=== PATIENT | male | born 1965 | race Caucasian/White ===

== ENCOUNTER → 2019-05-16 13:56 | Outpatient (CLI) | payer OTHER, SELFPAY ==
--- NOTE | 2019-05-16 14:01 | XR_ITS ---
PROCEDURE: XR FOOT RT MIN 3V CLINICAL INDICATION: FOOT PAIN COMPARISON: No exams were available for comparison FINDINGS: No fracture or dislocation. No lytic or blastic change. There is normal mineralization. Osteoarthritic changes are present at the 1st metatarsophalangeal joint Other findings:None. 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
== END ==
PROVIDERS: PCP Family Medicine; Visit Provider Nurse Practitioner Family
DX: M79.671 Pain in right foot (principal)
CPT/HCPCS: 73630

== ENCOUNTER → 2019-08-12 09:19 | Outpatient (CLI) | payer OTHER, SELFPAY ==
--- NOTE | 2019-08-12 09:22 | XR_ITS ---
PROCEDURE: XR FOOT WT BEARING RT 3V CLINICAL INDICATION: pain Right foot pain COMPARISON: XR FOOT RT MIN 3V from 05/16/2019 FINDINGS: No fracture or dislocation. No lytic or blastic change. There is normal mineralization. There are mild osteoarthritic changes at the 1st metatarsophalangeal joint. There is widening at the base of the proximal phalanx of the 5th digit which may be due to an old fracture not significantly changed Other findings:None. IMPRESSION: No change osteoarthritis of the 1st MTP joint and suspected old fracture at the proximal phalanx of the 5th toe Dictated by: Jens Lopez MD 08/12/2019 15:09 Electronically signed by Jens Lopez MD in [place] 08/12/2019 15:09
== END ==
PROVIDERS: PCP Family Medicine; Visit Provider Podiatrist
DX: M77.41 Metatarsalgia, right foot (principal); M77.51 Other enthesopathy of right foot and ankle; M79.671 Pain in right foot
CPT/HCPCS: 73630

== ENCOUNTER → 2020-04-06 11:58 | Outpatient (CLI) | payer OTHER, SELFPAY ==
--- NOTE | 2020-04-06 12:03 | XR_ITS ---
PROCEDURE: XR CHEST PORTABLE CLINICAL HISTORY: COVID OUTPATIENT Cough COMPARISON: No exams were available for comparison FINDINGS: The cardiomediastinal silhouette and pulmonary vascularity are within normal limits. The lungs are clear without infiltrates, suspicious nodules, or pleural effusions. No acute bony abnormalities. IMPRESSION: No acute findings. Dictated by: Jens Lopez MD 04/06/2020 12:46 Jens Lopez MD in [place] 04/06/2020 12:46
[2020-04-07 12:33] LABS: Covid-19 Nasal PCR Sendout Lex Positive
== END ==
PROVIDERS: PCP Family Medicine; Visit Provider Nurse Practitioner
DX: Z20.828 Contact with and (suspected) exposure to other viral communicable diseases (principal); U07.1 COVID-19
CPT/HCPCS: 71045; U0004

== ENCOUNTER → 2020-11-12 09:16 | Outpatient (CLI) | payer OTHER, SELFPAY ==
--- NOTE | 2020-11-12 09:23 | XR_ITS ---
PROCEDURE: XR KUB CLINICAL INDICATION: LT FLANK PAIN, HX OF RENAL CALCULI COMPARISON: CT ABDPELW/O CT ABD PELVIS W/O CONTRAST from 06/18/2016 CR KUB KUB (SINGLE VIEW) from 07/05/2016 FINDINGS: Cluster of calcifications noted overlying lower pole of the left kidney consistent with nephrolithiasis. This area measures 8 mm. No obvious ureteral calculi. IMPRESSION: Left-sided nephrolithiasis Dictated by: Jens Lopez MD 11/12/2020 10:26 Jens Lopez MD in [place] 11/12/2020 10:26
--- NOTE | 2020-11-12 09:23 | XR_ITS ---
PROCEDURE: XR CERVICAL SPINE 5V CLINICAL INDICATION: CERVICALGIA, DECREASED ROM OF NECK COMPARISON: No exams were available for comparison FINDINGS: Normal alignment. There is mild degenerative disc disease at from C3-C7. Degenerative disc disease is most prominent at the C6-C7 level. Minimal foraminal narrowing noted on the left mid C5-C6 and moderate foraminal narrowing on the right at C5-C6 and C6-C7 from uncovertebral and endplate hypertrophy. There is mild cervical curvature convex right. No fracture or dislocation. No lytic or blastic change. IMPRESSION: Cervical spondylosis as described above. Dictated by: Jens Lopez MD 11/12/2020 10:28 Jens Lopez MD in [place] 11/12/2020 10:28
== END ==
PROVIDERS: PCP Family Medicine; Visit Provider Nurse Practitioner Family
DX: M54.2 Cervicalgia (principal); R29.898 Other symptoms and signs involving the musculoskeletal system; R10.9 Unspecified abdominal pain; Z87.442 Personal history of urinary calculi
CPT/HCPCS: 72050; 74018

== ENCOUNTER → 2020-12-01 15:02 | Outpatient (CLI) | payer OTHER, SELFPAY ==
--- NOTE | 2020-12-01 15:05 | MR_ITS ---
PROCEDURE: MR CERVICAL SPINE WO CON CLINICAL INDICATION: CERVICAL SPONDYLOSIS, CERVICALGIA Right-sided neck pain COMPARISON: CR XR CERVICAL SPINE 5V from 11/12/2020 TECHNIQUE: Standard multiplanar multiecho sequences are performed without contrast. 3-D MIP and myelographic images are also rendered and reviewed FINDINGS: Normal alignment. Craniocervical junction has an unremarkable appearance. C2-C3: Unremarkable. C3-C4: Mild degenerative disc disease with minimal bulging disc. There is a small broad-based right paracentral and foraminal disc protrusion causing right-sided foraminal narrowing. C4-C5: Mild degenerative disc disease. Right-sided uncovertebral hypertrophy with right-sided foraminal narrowing. C5-C6: Degenerative disc disease with bulging disc which is eccentric toward the right along with uncovertebral hypertrophy resulting in severe right-sided foraminal narrowing. There is mild left-sided foraminal narrowing. Canal stenosis is present at this level. There is minimal flattening of the cord anteriorly on the right secondary to the bulging disc and endplate hypertrophic change. C6-C7: Mild degenerative disc disease with minimal bulging disc. The canal is narrowed at 10 mm and there is moderate bilateral foraminal narrowing. C7-T1 has an unremarkable appearance. No abnormal signal intensity of the cord. IMPRESSION: Cervical spondylosis as described above with degenerative disc disease, bulging and protruding disc as well as facet and uncovertebral hypertrophy with resultant varying degrees of foraminal narrowing. Please see above for detailed description at each level. No extruded herniated disc. Canal stenosis is present at C5-C6 and to lesser degree at C6-C7 Dictated by: Jens Lopez MD 12/01/2020 17:44 Jens Lopez MD in [place] 12/01/2020 17:44
== END ==
PROVIDERS: PCP Family Medicine; Visit Provider Nurse Practitioner Family
DX: M54.2 Cervicalgia (principal); M47.812 Spondylosis without myelopathy or radiculopathy, cervical region; R29.898 Other symptoms and signs involving the musculoskeletal system
CPT/HCPCS: 72141; 76376

== ENCOUNTER → 2020-12-11 08:26 | Outpatient (CLI) | payer OTHER, SELFPAY | PROVIDERS: Visit Provider Internal Medicine Gastroenterology | DX: Z01.812 Encounter for preprocedural laboratory examination (principal); Z11.52 Encounter for screening for COVID-19; Z12.11 Encounter for screening for malignant neoplasm of colon | CPT/HCPCS: U0003 ==

== ENCOUNTER 2020-12-14 10:22 | Day surgery (SDC) | payer OTHER, SELFPAY ==
[2020-12-09 13:45] VITALS: BMI 26.5
[2020-12-14 10:53] VITALS: BP 137/83; PULSE 75; RESP 18; TEMP 36.7; O2SAT 98
[2020-12-14 11:59] VITALS: O2SAT 96
--- NOTE | 2020-12-14 12:01 | HMH.ANESCL ---
[facility] Anesthesia Checklist - Patient Identification Patient Identification: Arm Band - Structural Data Admitted From: Home Planned Operative Procedure/s: colonoscopy Consent for Planned Operative Procedure(s) Verified: Yes Verified Documents: Surgical Consent, History and Physical - NPO Status Verified Time NPO: 00:00 - Additional verifications Anesthesia Reactions: No - Airway Assessment C-Spine Mobility Assessed: Yes (mp2) TMJ Mobility Assessed: Yes Dentition: Good Dentition - Neurological Assessment Level of Consciousness: Awake, Alert - Anesthesia Plan Anesthesia Risk discussed: Yes Anesthesia Plan: Verified ASA Class: II Anesthesia Type: MAC [facility] History I have reviewed the patient's past medical history: Yes Medical History: Reports:: Kidney Stones Denies:: Cancer, Diabetes Mellitus Type 1, Diabetes Mellitus Type 2, Internal Pacemaker, MRSA, Seizures *Have you ever received a pneumonia vaccine?: No *Have you received a flu vaccine this season?: Yes Anesthesia experience/problems:: nac Other Surgeries: Yes: Cancer Surgery, Colonoscopy, Other. No: Pacemaker Amputation: No Fractures: No - *Social History Smoking Status: Never smoker Alcohol Intake: never Substance Use Type: denies use *Occupational Status:: employed Housing: house Household Members: family *Travel in the last 8 weeks: None Family Hx:: No significant family history
--- NOTE | 2020-12-14 12:19 | HMH.PROC ---
[facility] Procedure Note Procedure Note:: Colonoscopy Procedure Report: Colonoscopy Endoscopist: Aravind Loya II, MD Referring physician: MARC Watkins Date of Procedure: December 14, 2020 Equipment: Olympus 190 variable stiffness pediatric colonoscope Sedation: MAC sedation Indication: Mr. Mcrae is a 55-year-old gentleman who is here for screening colonoscopy. He does state that he had a normal colonoscopy 10 or 11 years ago. He reports no abdominal pain, weight loss, change in his bowel habits or family history of colon cancer. He does state that he had some hemorrhoidal bleeding in the commode and tissue about a month ago that only lasted 1 to 2 days. Procedure: Prior to the procedure, a history and physical exam was performed, and patient's medications and allergies were reviewed. The risks, benefits and alternatives of the sedation and procedure were discussed with the patient. All questions were answered and informed consent was obtained. The patient was brought to the procedure room. Patient identification and proposed procedure were verified by the physician and the nurse. The patient was placed in a left lateral decubitus position and the scope was passed under direct vision. Throughout the procedure, the patient's blood pressure, pulse, and oxygen saturations were monitored continuously. The colonoscopy was accomplished without difficulty. The patient tolerated the procedure well. Findings: On digital rectal examination there was normal rectal tone. There were no external hemorrhoids. The prostate was 2+, very mildly asymmetric without nodules. The colonoscope was introduced through the anal canal to the rectum and advanced to the cecum. The ileocecal valve and appendiceal orifice were identified. The scope was advanced a short distance into the ileum which appeared grossly normal. The scope was then withdrawn into the colon. The cecum, ascending and transverse colon and mucosa were grossly normal. There were scattered diverticuli throughout the colon but more predominantly in the descending and sigmoid colon. The rectum itself was normal. Upon retroflexion within the rectum there were grade 1-2 internal hemorrhoids. The preparation was excellent throughout with Charlotte Preparation Score of 9. The cecal time was 12 minutes. Impression: 1. Pandiverticulosis 2. Grade 1-2 internal hemorrhoids Plan: The patient will not require screening/surveillance colonoscopy again for 10 years by ACS guidelines. I would encourage bulking fiber supplementation on a long-term daily maintenance basis.
[2020-12-14 12:23] VITALS: BP 131/83; PULSE 75; RESP 18; TEMP 36.3; O2SAT 96
[2020-12-14 12:33] VITALS: BP 122/86; PULSE 60; RESP 16; O2SAT 96
[2020-12-14 12:43] VITALS: BP 122/77; PULSE 74; RESP 16; O2SAT 97
[2020-12-14 12:53] VITALS: BP 122/81; PULSE 64; RESP 16; TEMP 36.3; O2SAT 98
== END 2020-12-14 12:53 | disposition home or self-care (01) ==
LOC: OUTP 10:23
PROVIDERS: PCP Family Medicine; Visit Provider Internal Medicine Gastroenterology
PROC: 0DJD8ZZ Inspection of Lower Intestinal Tract, Via Natural or Artificial Opening Endoscopic (ICD-10-PCS; CPT 45378; principal; 2020-12-14 11:30)
DX: Z12.11 Encounter for screening for malignant neoplasm of colon (principal); K57.32 Diverticulitis of large intestine without perforation or abscess without bleeding; K64.0 First degree hemorrhoids
CPT/HCPCS: 45378

== ENCOUNTER → 2021-02-04 09:35 | Outpatient (CLI) | payer OTHER, SELFPAY ==
--- NOTE | 2021-02-04 09:39 | XR_ITS ---
PROCEDURE: XR HAND LT MIN 3V CLINICAL INDICATION: SWELLING OF FINGER JOINT LT HAND COMPARISON: No exams were available for comparison FINDINGS: No fracture or dislocation. No lytic or blastic change. There is normal mineralization. The joint spaces are well-preserved. No significant degenerative/arthritic changes. No erosive changes evident. Mild diffuse soft tissue swelling of the index finger. Other findings:None. IMPRESSION: Mild soft tissue swelling of the index finger otherwise unremarkable exam Dictated by: Dr. Dev Rome MD 02/04/2021 10:09 Dr. Dev Rome MD in [place] 02/04/2021 10:09
== END ==
PROVIDERS: PCP Family Medicine; Visit Provider Nurse Practitioner Family
DX: M25.442 Effusion, left hand (principal)
CPT/HCPCS: 73130

== ENCOUNTER → 2021-03-18 08:20 | Outpatient (POV) | payer OTHER, SELFPAY ==
[2021-03-18 08:37] VITALS: BP 146/88; PULSE 68; RESP 18; O2SAT 97; BMI 27.2
--- NOTE | 2021-03-18 12:02 | P.CONS_ITS ---
[facility] Pain Management SOAP Note Objective:: Physical exam General: Alert and oriented x3, no acute distress, pleasant and cooperative Lungs: Respirations even and unlabored, symmetrical chest expansion Eyes: PERRL Musculoskeletal: Flexion and extension of cervical [spine] somewhat guarded secondary to pain, [antalgic gait noted] Neurological: Speech clear, no gross sensory deficit [facility] History Medical History: Reports:: Kidney Stones Denies:: Cancer, Diabetes Mellitus Type 1, Diabetes Mellitus Type 2, Internal Pacemaker, MRSA, Seizures *Have you ever received a pneumonia vaccine?: No *Have you received a flu vaccine this season?: No Other Surgeries: Yes: Cancer Surgery, Colonoscopy, Other. No: Pacemaker Amputation: No Fractures: No - *Social History Smoking Status: Never smoker Alcohol Intake: never Substance Use Type: denies use *Occupational Status:: employed Housing: house Household Members: family *Travel in the last 8 weeks: None Family Hx:: No significant family history
--- NOTE | 2021-03-18 12:05 | HMH.PMCON ---
Assessment and Plan (1) Degenerative joint disease of cervical spine Status: Chronic Category: Medical Code(s): M47.812 - Spondylosis without myelopathy or radiculopathy, cervical region (2) Cervical radiculopathy Status: Chronic Category: Medical Code(s): M54.12 - Radiculopathy, cervical region (3) Spinal stenosis, cervical region Status: Chronic Category: Medical Code(s): M48.02 - Spinal stenosis, cervical region - Assessment and plan all Dx Assessment and Plan for all problems:: Patient is here today for consultation for chronic neck pain with frequent headaches. Patient and I did review his MRI today. Per the MRI report, Cervical spondylosis with degenerative disc disease, bulging and protruding disc as well as facet and uncovertebral hypertrophy with resultant varying degrees of foraminal narrowing. Please see above for detailed description at each level. No extruded herniated disc. Canal stenosis is present at C5-C6 and to lesser degree at C6-C7 . Patient I did discuss possible facet injections, however, the patient feels the pain is present regardless of movement of head. He is negative of the Spurling's test today. We will schedule him for cervical epidural steroid injection at the C5-C6 area. He is not on any anticoagulation therapy. He is having radicular symptoms into his bilateral upper extremities. We will plan to follow-up with him after the injection for further evaluation of symptoms. The patient is not on any anticoagulation therapy. He is not diabetic. Possible side effects of corticosteroids have been discussed with the patient. Risks and benefits of the procedure have been explained to the patient. Patient would like to proceed with the procedure. Patient has been instructed to contact the clinic with any concerns before the next appointment. Dr. Tirado has reviewed this note and agrees with this plan of care. This note was dictated using voice recognition software and make contain errors or omissions. HPI - Data of Consult Patient: new to practice Consult date: 03/18/21 Requesting Physician: Mulu Portillo APRN - Consult Narrative Reason for consult: Neck pain History of present illness: Patient is a 55-year-old white male who presents today for consultation for chronic neck pain. The patient was referred to us by Barney Ch PA-C neurosurgery [facility]. Patient is complaining of severe neck pain which has been ongoing since October 2020. The pain is deep in nature and constant. He says the pain is made worse with any type of movement. He says doing activities such as mowing grass or weed eating worsens his pain. He primarily had pain on the right side initially, but reports he is now having pain to the left shoulder area since starting physical therapy. He has had dry needling which did give him short-term relief. Of note he also has significant swelling of his left first finger. He says that this presented when he began to have pain in his neck area. He has also developed frequent headaches along with decreased strength in bilateral upper extremities. He does have decreased range of motion to the left side which was made worse following trigger point injections. He has tried physical therapy for greater than 6 weeks and does continue with home stretching. He has also tried muscle relaxants with minimal relief. The patient has not gotten any significant relief at this point. He would like to proceed with injective therapy. He has had imaging of his cervical spine. He does rate his pain a 5 out of 10 today. Patient does say raising head up and down or turning from side to side does not worsen his pain. Patient denies dizziness, vision changes, or nausea vomiting CC: Mulu Portillo APRN [place] History I have reviewed the patient's past medical history: Yes Medical History: Reports:: Kidney Stones Denies:: Cancer, Diabetes Mellitus Type 1, Diabetes Mellitus Type 2
== END ==
PROVIDERS: Visit Provider Clinical Nurse Specialist Family Health
DX: M47.892 Other spondylosis, cervical region (principal); M54.12 Radiculopathy, cervical region; M48.02 Spinal stenosis, cervical region
CPT/HCPCS: 99202; G0463

== ENCOUNTER → 2021-03-23 15:16 | Outpatient (CLI) | payer OTHER, SELFPAY ==
--- NOTE | 2021-03-23 15:18 | CT_ITS ---
PROCEDURE: CT CERVICAL SPINE WO CON CLINICAL INDICATION: SPINAL STENOSIS, CERVICAL REGION COMPARISON: MR MR CERVICAL SPINE WO CON from 12/01/2020 TECHNIQUE: Axial images obtained with sagittal and coronal reformats. All CT scans at the facility use one or more dose reduction, viz: automated exposure control, ma/kV adjustment per patient size (including targeted exams where dose is matched to indication, i.e. head), or iterative reconstruction technique. Axial spiral CT scanning performed of the cervical spine beginning at the base of the skull and continuing to the upper T-spine. 3-D multiplanar reconstruction with 3-D manipulation of volumetric data set in image rendering was completed by the radiologist and/or technologist with the supervision of the radiologist on independent workstation. FINDINGS: Normal alignment. No fracture or dislocation. The C1-C2: Degenerative changes of the anterior arch of C1 and the odontoid process with small superior spur at the anterior arch of C1. C2-C3: Unremarkable. C3-C4: Degenerative disc disease with minimal bulging disc and mild uncovertebral hypertrophy on right with right-sided foraminal narrowing. C4-C5: Mild degenerative disc disease with mild bilateral uncovertebral hypertrophy with mild bilateral foraminal narrowing slightly greater on the right C5-C6: Degenerative disc disease with endplate osteophytes. Broad-based right paracentral and foraminal disc osteophyte complex causing severe right-sided foraminal narrowing and right lateral recess narrowing. Moderate the left foraminal narrowing from endplate hypertrophic change. Canal stenosis. Broad-based central and left paracentral and foraminal disc protrusion with left lateral recess narrowing C6-C7: Degenerative disc disease with bulging disc and uncovertebral hypertrophy with bilateral foraminal narrowing. C7-T1: Unremarkable. Lung apices are clear. No paraspinal mass. No fracture or dislocation. There is scattered small cervical lymph nodes. IMPRESSION: Multilevel cervical spondylosis with lateral recess and foraminal narrowing and canal stenosis. Please see above for detailed description at each level. Dictated by: Jens Lopez MD 03/25/2021 08:27 Jens Lopez MD in [place] 03/25/2021 08:27
== END ==
PROVIDERS: PCP Family Medicine; Visit Provider Physician Assistant
DX: M48.02 Spinal stenosis, cervical region (principal)
CPT/HCPCS: 72125

== ENCOUNTER → 2021-03-31 08:10 | Outpatient (CLI) | payer OTHER, SELFPAY ==
--- NOTE | 2021-03-31 08:13 | CT_ITS ---
PROCEDURE: CT ABDOMEN PELVIS WO CON CLINICAL INDICATION: CALCULUS OF KIDNEY COMPARISON: CT ABDPELW/O CT ABD PELVIS W/O CONTRAST from 06/18/2016 TECHNIQUE: Axial images obtained with sagittal and coronal reformats. All CT scans at the facility use one or more dose reduction, viz: automated exposure control, ma/kV adjustment per patient size (including targeted exams where dose is matched to indication, i.e. head), or iterative reconstruction technique. FINDINGS: LOWER THORAX: Atelectatic change or scarring in the right middle lobe. ABDOMEN & PELVIS: The liver, spleen, adrenal glands, and pancreas have an unremarkable appearance. No radiopaque gallstones. 8 x 6 mm irregular shaped calculus present in the lower pole of the left kidney. No hydronephrosis. No ureteral calculi. No intestinal obstruction or free air. No evidence of appendicitis or diverticulitis. There are scattered colonic diverticula. There are few small mesenteric lymph nodes. No pelvic mass or abnormal fluid collection Mild degenerative changes lower thoracic and lumbar spine. No acute bony findings. IMPRESSION: 8 x 6 mm nonobstructing stone lower pole left kidney. Dictated by: Jens Lopez MD 04/01/2021 08:18 Jens Lopez MD in [place] 04/01/2021 08:18
== END ==
PROVIDERS: PCP Family Medicine; Visit Provider Urology
DX: N20.0 Calculus of kidney (principal)
CPT/HCPCS: 74176

== ENCOUNTER 2021-04-15 09:00 | Outpatient (RCR) | payer OTHER, SELFPAY | END 2021-04-15 09:05 | disposition home or self-care (01) | LOC: PT 09:00 | PROVIDERS: PCP Family Medicine; Visit Provider Physician Assistant | DX: M48.02 Spinal stenosis, cervical region (principal) | CPT/HCPCS: 20560; 97010; 97012; 97014; 97035; 97110; 97140; 97163; 97164; G0283 ==

== ENCOUNTER 2021-04-16 10:01 | Day surgery (SDC) | payer OTHER, SELFPAY ==
[2021-04-16 10:41] VITALS: BP 143/92; PULSE 67; RESP 18; TEMP 36.6; O2SAT 96; BMI 27.2
[2021-04-16 11:06] VITALS: BP 127/78; PULSE 55; RESP 18; O2SAT 97
[2021-04-16 11:07] VITALS: PULSE 59; RESP 18; O2SAT 98
--- NOTE | 2021-04-16 11:10 | HMH.PMPROC ---
- Procedure Date: 04/16/21 Time: 11:10 Anesthesiologist:: Zuly Heart MD Complications:: None Pre-procedure Diagnosis:: Degenerative disc disease of the cervical spine with cervical radiculopathy Post-procedure Diagnosis:: Same Indications for Procedure:: Patient is a very pleasant 55-year-old white male who presents today with chronic neck pain rating into his arms related to the above diagnosis. He is trialed and failed conservative treatment including oral pain medications and home stretching program for greater than 6 weeks. He also has frequent headaches. The plan for today is for the patient to undergo cervical epidural steroid injection under fluoroscopy at C7-T1 #1. Procedure Details:: Cervical epidural steroid injection under fluoroscopy Informed consent was obtained and the risks and benefits of the procedure was explained to the patient. The patient was taken to the procedure room placed prone on the procedure table. The neck was prepped using ChloraPrep. The skin and subcutaneous tissues were anesthetized using lidocaine. I placed a 18-gauge epidural needle into the C7-T1 interspace and advanced using [id number] to air and fluoroscopic guidance. After confirmation of needle placement in the epidural space with dye, I injected 3 mL's lidocaine 1.5% and Depo-Medrol 80 mg. The patient tolerated the procedure well with no complications. Plan and Disposition:: We will follow-up with this patient in 2 weeks. Will reevaluate pain symptoms at that time.
[2021-04-16 11:15] VITALS: BP 143/95; PULSE 59; RESP 20; O2SAT 96
== END 2021-04-16 11:16 | disposition home or self-care (01) ==
LOC: SC.PAINP 10:02
PROVIDERS: PCP Family Medicine; Visit Provider Anesthesiology Pain Medicine
DX: M50.10 Cervical disc disorder with radiculopathy, unspecified cervical region (principal)
CPT/HCPCS: 62321; J1040; Q9966

== ENCOUNTER 2022-02-28 06:52 | Emergency (ER) | payer OTHER, SELFPAY ==
[2022-02-28 06:52] VITALS: BP 160/104; PULSE 70; RESP 18; TEMP 36.7; O2SAT 99; BMI 26.5
--- NOTE | 2022-02-28 07:06 | CT_ITS ---
FINAL REPORT CLINICAL HISTORY: abd pain..lt lower side pain hx of kidney stones 75 cc of isovue 370 COMPARISON: March 31, 2021 FINDINGS: CT OF THE ABDOMEN AND PELVIS WITH CONTRAST Axial CT images of the abdomen and pelvis were obtained after the administration of IV contrast. Coronal reformatted images were also obtained and reviewed.This study was performed with techniques to keep radiation doses as low as reasonably achievable (ALARA). Individualized dose reduction techniques using automated exposure control or adjustment of mA and/or kV according to the patient's size were employed. Abdomen: There is mild bibasilar atelectasis.. The heart is normal in size. The liver has an unremarkable appearance, without evidence of mass or biliary ductal dilatation. The gallbladder is present. The spleen is unremarkable. No adrenal mass is present. The pancreas has an unremarkable appearance. There are small less than 3 mm left lower pole kidney stones. There is mild and moderate left hydronephrosis and hydroureter secondary to a 5 mm left UVJ stone. The aorta is normal in caliber. There is no free fluid or adenopathy. No mass is seen. Pelvis: The appendix is normal. The urinary bladder is unremarkable. There are several sigmoid diverticula. There is no evidence of mass or adenopathy. There is no evidence of bowel obstruction. IMPRESSION: Ggyi-[id number] left hydronephrosis and hydroureter secondary to 5 mm left UVJ stone. Reviewed, Interpreted and Dictated by Augustin Lindsay III, MD Transcribed by Juli Owen Authenticated and [facility]
--- NOTE | 2022-02-28 07:07 | HMH.EDABDPAI ---
Discharge Plan Disposition Patient Disposition: Home, Self-Care Prescriptions Prescriptions: New tamsulosin [Flomax] 0.4 mg capsule 0.4 mg PO DAILY Qty: 10 0RF Referrals Follow up/Referrals: Micheal Lewis MD [Primary Care Provider] - See instructions Davin Denney MD [Staff Physician] - See instructions Clinical Impressions Clinical Impression: Renal colic on left side Instructions Patient Instructions: DI for Kidney Stones Discharge ED Provider: Detsin Buitrago Abdominal Pain HPI General Chief Complaint: Abdominal Pain Stated Complaint: severe abd pain Time Seen by Provider: 02/28/22 07:07 Mode of Arrival: Ambulatory Source of Information: Patient and Medical Record Limitations: No Limitations Description of Symptoms (Recalled from ER Triage Doc. by RN): Pt c/o LLQ abd pain that radiates into his left flank. He rates pain 7 out of 10. Pain started at aprox 1am while he was at work. He denies urinary symptoms. Reports hard stool last time he had a BM. He denies vomiting but endorses vomiting. Denies fevers. History of Present Illness HPI narrative: pt with acute lt flank pain which started this am complaint: flank pain Onset (ago): hour(s) Consistency: intermittent Severity: moderate Associated symptoms: nausea Related Data Previous Rx's Medication Instructions Recorded tamsulosin 0.4 mg capsule (Flomax) 0.4 mg PO DAILY #10 caps 02/28/22 Allergies Allergy/AdvReac Type Severity Reaction Status Date / Time No Known Allergies Allergy Verified 04/16/21 10:41 PFSH PFSH Social History Smoking Status: Never smoker alcohol intake: never substance use type: denies use current occupational status: employed Travel in the last 8 weeks: None household members: family housing: house current occupational exposures/hazards: No caffeine: Yes ROS Obtained: Yes All systems reviewed & no additional complaints except as documented Physical Exam General General appearance: alert Head Head exam: normocephalic Eye Eye exam: Present PERRL and EOMI ENT ENT exam: Present mucous membranes moist Neck Neck exam: Present trachea midline Respiratory Respiratory exam: Absent respiratory distress Cardiovascular Cardiovascular exam: Present regular rate Abdominal Exam Abdominal exam: Present soft and tenderness Abdominal tenderness: Present LLQ and moderate Extremities Exam Extremities exam: Present full ROM Neurological Exam Neurological exam: Present alert, oriented X3 and CN II-XII intact Psychiatric Psychiatric exam: Present normal affect Skin Skin exam: Absent rash Medical Decision Making Medical Records Medical records reviewed: Yes I reviewed the patient's medical records. Andrew Inquiry Pt receiving controlled substance: No Vital Signs: 02/28/22 06:52 02/28/22 07:30 02/28/22 08:00 Temperature 98.1 F Temperature Source Oral Pulse Rate 68 64 Pulse Rate [Right Radial] 70 Respiratory Rate 18 20 20 Blood Pressure 138/90 138/89 Blood Pressure [Right Arm] 160/104 H Blood Pressure Mean [Right Arm] 122 Blood Pressure Source [Right Arm] Automatic Cuff Blood Pressure Position [Right Arm] Sitting 02 Sat by Pulse Oximetry 99 97 99 Oxygen Delivery Method Room Air 02/28/22 08:30 Temperature Temperature Source Pulse Rate 65 Pulse Rate [Right Radial] Respiratory Rate 18 Blood Pressure 133/89 Blood Pressure [Right Arm] Blood Pressure Mean [Right Arm] Blood Pressure Source [Right Arm] Blood Pressure Position [Right Arm] 02 Sat by Pulse Oximetry 97 Oxygen Delivery Method Lab Data Lab results reviewed: Yes I reviewed the patient's lab results. Lab Results 02/28/22 07:06: Urine Color Yellow, Urine Appearance Clear, Urine pH 6.0, Ur Specific [place] 1.025, Urine Protein Negative, Urine Glucose (UA) Negative, Urine Ketones Negative, Urine Blood 1+, Urine Nitrate Negative, Urine Bilirubin Negative, Urine Urobilinogen 0.2, Ur Leukocyte E
[2022-02-28 07:15] LABS: Microscopic, Urine URINE MICROSCOPIC (MICROSCOPIC)
[2022-02-28 07:18] LABS: Appearance,Urine CLEAR (Clear); Bilirubin,Urine Negative (Negative); Blood, Urine 1+ (Negative); Color,Urine YELLOW (Yellow); Glucose,Urine (UA) Negative (Negative); Ketones,Urine Negative (Negative); Leukocyte Esterase,Urine Negative (Negative); Nitrate,Urine Negative (Negative); Protein,Urine Negative (Negative); Specific Gravity, Urine 1.025 (1.005-1.030); Urobilinogen,Urine 0.2 EU/dl (0.2)
[2022-02-28 07:19] LABS: Chloride 102 mmol/L (98-107); Sodium 142 mmol/L (136-145)
[2022-02-28 07:20] LABS: Basophils % 0.5 % (0.1-2.0); Eosinophils # 0.2 K/mm3 (0.0-0.4); Eosinophils % 2.2 % (0.1-12.0); Hematocrit 43.3 % (42.0-52.0); Hemoglobin 14.1 g/dL (14.1-18.0); Lymphocytes # 1.1 K/mm3 (0.7-4.5); Lymphocytes % 12.1 % (10-50); Mean Corpuscular HGB Conc 32.4 g/dL (31.8-35.4); Mean Corpuscular Hemoglobin 30.2 pg (27.0-31.2); Mean Corpuscular Volume 93.2 fl (80-94); Mean Platelet Volume 7.1 fl (7.4-10.4); Monocytes # 0.4 K/mm3 (0.1-1.0); Neutrophils # 7.4 K/mm3 (1.8-7.8); Neutrophils % 81.3 % (37.0-80.0); Platelet Count 298 K/mm3 (142-424); Potassium 4.2 mmoL/L (3.5-5.1); Red Blood Count 4.65 M/mm3 (4.60-6.20); Red Cell Distribution Width 13.1 % (11.5-17.5); White Blood Count 9.1 K/mm3 (4.8-10.8)
[2022-02-28 07:22] LABS: Alanine Aminotransferase 14 U/L (12-78); Albumin Level 4.2 g/dl (3.5-5.0); Albumin/Globulin Ratio 1.5 (1.1-1.8); Alkaline Phosphatase 114 U/L (38-126); Anion Gap 14.2 mEq/L (5-15); Aspartate Amino Transferase 30 U/L (17-59); Bilirubin,Total 0.2 mg/dl (0.2-1.3); Blood Urea Nitrogen 15 mg/dl (9-20); Carbon Dioxide 30 mmol/L (22.0-30.0); Creatinine Clearance Estimated 100 mL/min (50-200); Estimated Glomerular Filt Rate 78 ml/min (>60); GFR (African American) 94 ML/MIN (>60); Globulin 2.8 g/dL (1.3-3.2)
[2022-02-28 07:23] LABS: Calcium 8.6 mg/dl (8.4-10.2); Glucose 120 mg/dl (74-100)
--- NOTE | 2022-02-28 07:23 | PC.NURSE ---
Received report from ManavRN Rounded on pt at this time. Pt resting in bed with at bedside, no new needs at this time
[2022-02-28 07:28] LABS: C-Reactive Protein 5.5 mg/L (0-4)
[2022-02-28 07:30] VITALS: BP 138/90; PULSE 68; RESP 20; O2SAT 97
[2022-02-28 07:42] LABS: Bacteria,Urine Trace /lpf; Squamous Epithelial Cell,Urine Occasional #/hpf (0-5); WBC,Urine Occasional #/hpf (0-3)
--- NOTE | 2022-02-28 07:47 | PC.NURSE ---
PT TO CT AT THIS TIME
[2022-02-28 07:48] LABS: Erythrocyte Sedimentation Rate 6 mm/hr (0-20)
[2022-02-28 08:00] VITALS: BP 138/89; PULSE 64; RESP 20; O2SAT 99
[2022-02-28 08:30] VITALS: BP 133/89; PULSE 65; RESP 18; O2SAT 97
--- NOTE | 2022-02-28 09:36 | PC.NURSE ---
checked on pt at this time. No new needs. PT resting in bed
--- NOTE | 2022-02-28 10:19 | PC.NURSE ---
Spoke with Dr. Buitrago about pt's POC. Notified Dr. Lamberto ALFORD for flomax given and advised he would send script in from the office and give pt number for urology follow-up
--- NOTE | 2022-02-28 10:27 | PC.NURSE ---
Spoke with Dr. Buitrago about pain medication for pt prior to d/c VO given at this time and orders enetered
[2022-02-28 11:03] VITALS: BP 133/85; PULSE 74; RESP 16; TEMP 36.8; O2SAT 100
== END 2022-02-28 11:05 | disposition home or self-care (01) ==
PROVIDERS: Emergency Provider Emergency Medicine; PCP Family Medicine
DX: R10.32 Left lower quadrant pain (principal); R11.0 Nausea
CPT/HCPCS: 74177; 80053; 81001; 85025; 85651; 86140; 96361; 96374; 96375; 99285; J2405; Q9967

== ENCOUNTER 2022-07-13 18:32 | Emergency (ER) | payer OTHER, SELFPAY ==
[2022-07-13] VITALS (14 sets, daily range): BP systolic 123–149; BP diastolic 80–96; PULSE 66–88; RESP 17–30; TEMP 36.5–36.8; O2SAT 95–100; BMI 25.8
--- NOTE | 2022-07-13 18:47 | ECG_ITS ---
APPROVED REPORT Exam: Resting ECG HR:70 bpm ECG Measurements Heart Rate 70 AXES CA 192 P 44 QRSd 94 QRS 59 QT 380 T 45 QTc 400 Conclusion SINUS RHYTHM NORMAL ECG UNCONFIRMED REPORT Electronically signed by : Ilya Jaime MD 07/13/2022 20:23:32
--- NOTE | 2022-07-13 19:07 | XR_ITS ---
PROCEDURE INFORMATION: Exam: XR Chest Exam date and time: 07/13/2022 7:31 PM Age: 57 years old Clinical indication: Injury or trauma; Fall; Blunt trauma (contusions or hematomas) TECHNIQUE: Imaging protocol: Radiologic exam of the chest. Views: 1 view. COMPARISON: CR XR CHEST PORTABLE 04/06/2020 12:32 PM FINDINGS: Lungs: No consolidation. Pleural spaces: No pneumothorax. Heart/Mediastinum: No cardiomegaly. Bones/joints: No acute abnormality. IMPRESSION: No acute findings.
--- NOTE | 2022-07-13 19:07 | CT_ITS ---
PROCEDURE INFORMATION: Exam: CT Head Without Contrast Exam date and time: 07/13/2022 7:29 PM Age: 57 years old Clinical indication: Injury or trauma; Fall; Blunt trauma (contusions or hematomas); Additional info: Fall, AMS, tremor TECHNIQUE: Imaging protocol: Computed tomography of the head without contrast. Radiation optimization: All CT scans at this facility use at least one of these dose optimization techniques: automated exposure control; mA and/or kV adjustment per patient size (includes targeted exams where dose is matched to clinical indication); or iterative reconstruction. REPORTING DATA: Count of CT and Cardiac NM exams in prior 12 months: This patient has received [address] and 0 known cardiac nuclear medicine studies in the 12 months prior to the current study. COMPARISON: CT CERVICAL SPINE WO CON 03/23/2021 3:28 PM FINDINGS: Brain: No large territorial infarction. No hemorrhage. No mass effect or midline shift. Cerebral ventricles: No ventriculomegaly. Paranasal sinuses: Mucosal thickening of the paranasal sinuses. No air fluid level. Mastoid air cells: Visualized mastoid air cells are well aerated. Bones/joints: No acute fracture. Soft tissues: No significant soft tissue abnormality. IMPRESSION: No acute findings.
[2022-07-13 19:14] LABS: Basophils # 0.1 K/mm3 (0-0.2); Basophils % 0.7 % (0.1-2.0); Eosinophils # 0.4 K/mm3 (0.0-0.4); Eosinophils % 2.6 % (0.1-12.0); Hemoglobin 14.2 g/dL (14.1-18.0); Lymphocytes # 2.9 K/mm3 (0.7-4.5); Lymphocytes % 20.9 % (10-50); Mean Corpuscular Hemoglobin 29.6 pg (27.0-31.2); Mean Corpuscular Volume 89.8 fl (80-94); Mean Platelet Volume 8.1 fl (7.4-10.4); Monocytes # 0.8 K/mm3 (0.1-1.0); Monocytes % 5.6 % (1.7-9.3); Neutrophils # 9.6 K/mm3 (1.8-7.8); Neutrophils % 70.3 % (37.0-80.0); Platelet Count 369 K/mm3 (142-424); Red Blood Count 4.79 M/mm3 (4.60-6.20); Red Cell Distribution Width 13.4 % (11.5-17.5); White Blood Count 13.7 K/mm3 (4.8-10.8)
[2022-07-13 19:20] LABS: INR 0.95 (0.9-1.1); Prothrombin Time 10.3 seconds (10.1-12.5)
[2022-07-13 19:27] LABS: Chloride 103 mmol/L (98-107); Sodium 135 mmol/L (136-145)
--- NOTE | 2022-07-13 19:27 | PC.NURSE ---
Spoke with and updated her on POC. Pt going to CT
[2022-07-13 19:29] LABS: Blood Urea Nitrogen 26 mg/dl (9-20)
[2022-07-13 19:30] LABS: Calcium 8.8 mg/dl (8.4-10.2); Carbon Dioxide 25 mmol/L (22.0-30.0); Creatinine Clearance Estimated 88 mL/min (50-200); Estimated Glomerular Filt Rate 69 ml/min (>60); GFR (African American) 84 ML/MIN (>60); Glucose 113 mg/dl (74-100)
--- NOTE | 2022-07-13 19:33 | PC.NURSE ---
Pt back from RAD via stretcher
[2022-07-13 19:47] LABS: Troponin I < 0.01 ng/ml (0.00-0.034)
--- NOTE | 2022-07-13 20:16 | CT_ITS ---
PROCEDURE INFORMATION: Exam: CTA Neck With Contrast Exam date and time: 07/13/2022 8:31 PM Age: 57 years old Clinical indication: Dizziness and giddiness and visual disturbance and other: AMS TECHNIQUE: Imaging protocol: Computed tomographic angiography of the neck with contrast. 3D rendering (Not supervised by radiologist): MIP and/or 3D reconstructed images were created by the technologist. Radiation optimization: All CT scans at this facility use at least one of these dose optimization techniques: automated exposure control; mA and/or kV adjustment per patient size (includes targeted exams where dose is matched to clinical indication); or iterative reconstruction. Contrast material: ISOVUE; Contrast volume: 100 ml; Contrast route: INTRAVENOUS (IV); REPORTING DATA: Count of CT and Cardiac NM exams in prior 12 months: This patient has received 3 known [address]s and 0 known cardiac nuclear medicine studies in the 12 months prior to the current study. COMPARISON: CT CERVICAL SPINE WO CON 03/23/2021 3:28 PM FINDINGS: Right common carotid artery: No stenosis. No dissection or occlusion. Right internal carotid artery: No stenosis of the extracranial segment. No dissection or occlusion. Right external carotid artery: No occlusion or stenosis of the origin. Left common carotid artery: No stenosis. No dissection or occlusion. Left internal carotid artery: No stenosis of the extracranial segment. No dissection or occlusion. Left external carotid artery: No occlusion or stenosis of the origin. Right vertebral artery: No stenosis. No dissection or occlusion. Left vertebral artery: No stenosis. No dissection or occlusion. Soft tissues: Normal. No significant soft tissue swelling. Bones/joints: Poor dentition with multiple missing and eroded teeth. IMPRESSION: No stenosis or occlusion. REFERENCES: NASCET CRITERIA. The degree of stenosis in the cervical segment of the internal carotid artery is based on NASCET criteria. Normal is no stenosis. Mild is less than 50% stenosis. Moderate is 50-69% stenosis. Severe is 70% to 99% stenosis. Total occlusion is no detectable patent lumen.
--- NOTE | 2022-07-13 20:16 | CT_ITS ---
PROCEDURE INFORMATION: Exam: CTA Head With Contrast, Arteriography Exam date and time: 07/13/2022 8:31 PM Age: 57 years old Clinical indication: Other: AMS TECHNIQUE: Imaging protocol: Computed tomographic angiography of the head with contrast. Exam focused on the arteries. 3D rendering (Not supervised by radiologist): MIP and/or 3D reconstructed images were created by the technologist. Radiation optimization: All CT scans at this facility use at least one of these dose optimization techniques: automated exposure control; mA and/or kV adjustment per patient size (includes targeted exams where dose is matched to clinical indication); or iterative reconstruction. Contrast material: ISOVUE 370; Contrast volume: 100 ml; Contrast route: INTRAVENOUS (IV); REPORTING DATA: Count of CT and Cardiac NM exams in prior 12 months: This patient has received 3 known CTs and 0 known cardiac nuclear medicine studies in the 12 months prior to the current study. COMPARISON: CT HEAD/BRAIN WO CON 07/13/2022 7:29 PM FINDINGS: ANTERIOR CIRCULATION: Right internal carotid artery: Intracranial segment is patent with no significant stenosis. No aneurysm. Right middle cerebral artery: No occlusion or significant stenosis. No aneurysm. Right anterior cerebral artery: No occlusion or significant stenosis. No aneurysm. Left internal carotid artery: Intracranial segment is patent with no significant stenosis. No aneurysm. Left middle cerebral artery: No occlusion or significant stenosis. No aneurysm. Left anterior cerebral artery: No occlusion or significant stenosis. No aneurysm. POSTERIOR CIRCULATION: Right vertebral artery: No occlusion or significant stenosis. No aneurysm. Left vertebral artery: No occlusion or significant stenosis. No aneurysm. Basilar artery: No occlusion or significant stenosis. No aneurysm. Right posterior cerebral artery: No occlusion or significant stenosis. No aneurysm. Left posterior cerebral artery: No occlusion or significant stenosis. No aneurysm. Brain: No definite mass, mass effect, or midline shift. Cerebral ventricles: No ventriculomegaly. Paranasal sinuses: Mucosal thickening of the paranasal sinuses. No air fluid level. Dental: Poor dentition with multiple missing and eroded teeth. Bones/joints: Unremarkable. No acute fracture. Soft tissues: Unremarkable. IMPRESSION: No acute vascular abnormality.
--- NOTE | 2022-07-13 20:23 | PC.NURSE ---
Updated on POC. and CT head results. Dr. Buitrago at bedside
--- NOTE | 2022-07-13 20:28 | HMH.EDFALL ---
Discharge Plan Disposition Patient Disposition: Home, Self-Care Chief Complaint: Fall Prescriptions Prescriptions: No Action oxycodone-acetaminophen [Percocet] 7.5-325 mg tablet 1 tab PO TID PRN (Reason: pain) Qty: 15 0RF tamsulosin [Flomax] 0.4 mg capsule 0.4 mg PO DAILY Qty: 10 0RF Referrals Follow up/Referrals: Micheal Lewis MD [Primary Care Provider] - See instructions Clinical Impressions Clinical Impression: Acute labyrinthitis Instructions Patient Instructions: DI for Labyrinthitis Discharge ED Provider: Minna (ED)[place] HPI General Chief Complaint: Fall Stated Complaint: Shortness of Air, Dyspnea Time Seen by Provider: 07/13/22 20:28 Mode of Arrival: EMS Source of Information: Patient, Spouse and Medical Record Limitations: Physical Limitations Description of Symptoms (Recalled from ER Triage Doc. by RN): Pt via EMS for reported became dizzy and fall at home, found lying on floor, c/o head, neck pain and visual changes; normally independent and active History of Present Illness HPI Narrative: pt with reported dizzyness and sweating with sob and fell - no chest pain or palpitations -no focal neuro sx- no speech or focal neuro sx- - pt with brief episode in ed with awake and no focal changes - no recent viral illness- Onset (ago): hour(s) Fall witnessed: no Place fall occurred: home Loss of consciousness: unsure Prolonged down time: no Symptoms prior to fall: lightheadedness and dizziness Severity: moderate Associated symptoms (after fall): denies Related Data Previous Rx's Medication Instructions Recorded oxycodone-acetaminophen 7.5 mg-325 1 tab PO TID PRN pain #15 tabs 02/28/22 mg tablet (Percocet) tamsulosin 0.4 mg capsule (Flomax) 0.4 mg PO DAILY #10 caps 02/28/22 Allergies Allergy/AdvReac Type Severity Reaction Status Date / Time No Known Allergies Allergy Verified 04/16/21 10:41 [facility] Disclaimer: The information contained in this section may have been updated after the patient was seen, as this information can be updated by other users. Social History Smoking Status: Unknown if ever smoked alcohol intake: never substance use type: denies use current occupational status: employed Travel in the last 8 weeks: None household members: family housing: house current occupational exposures/hazards: No caffeine: Yes ROS Obtained: Yes All systems reviewed & no additional complaints except as documented Physical Exam General General appearance: alert Head Head exam: normocephalic Eye Eye exam: Present PERRL and EOMI; Absent scleral icterus or nystagmus ENT ENT exam: Present normal oropharynx, mucous membranes moist and other (no evid of tongue biting ) Neck Neck exam: Present full ROM and trachea midline Respiratory Respiratory exam: Present normal lung sounds bilaterally; Absent respiratory distress Cardiovascular Cardiovascular exam: Present regular rate; Absent systolic murmur Abdominal Exam Abdominal exam: Present soft Extremities Exam Extremities exam: Present full ROM Neurological Exam Neurological exam: Present alert, oriented X3, CN II-XII intact and other (able to stand - romberg ok); Absent motor sensory deficit Psychiatric Psychiatric exam: Present normal affect Skin Skin exam: Absent rash Medical Decision Making Medical Records Medical records reviewed: Yes I reviewed the patient's medical records. Andrew Inquiry Pt receiving controlled substance: No Vital Signs: 07/13/22 18:19 07/13/22 18:30 07/13/22 19:00 Temperature 97.7 F Temperature Source Oral Pulse Rate 66 82 Pulse Rate [Left Radial] 72 Pulse Rate [Orthostatic Lying] Pulse Rate [Orthostatic Sitting] Pulse Rate [Orthostatic Standing] Respiratory Rate 30 H Blood Pressure 141/94 H 136/90 Blood Pressure [Left Arm] 149/96 H Blood Pressure [Orthostatic Lying] Blood Pressure [Orthostatic Sitting] Blood Pressure [Orthostatic S
--- NOTE | 2022-07-13 21:05 | PC.NURSE ---
spoke with MD and advised pt was having another episode MD went in to assess patient, he reported this to me and advised during his assessment it appeared that pt was hyperventilating but no other symptoms. I went in and spoke with about patient and symptoms. She advised he was back to baseline and it had only lasted for a few minutes.
[2022-07-13 21:46] LABS: C-Reactive Protein 2.6 mg/L (0-4)
--- NOTE | 2022-07-13 21:47 | PC.NURSE ---
Dr. Buitrago at
[2022-07-13 22:00] LABS: Procalcitonin 0.064 ng/mL (0.0-2.0)
[2022-07-13 22:07] LABS: Erythrocyte Sedimentation Rate 13 mm/hr (0-20)
--- NOTE | 2022-07-13 22:18 | PC.NURSE ---
Sachin drawn and sent to lab
[2022-07-13 22:51] LABS: Troponin I < 0.01 ng/ml (0.00-0.034)
--- NOTE | 2022-07-13 23:01 | PC.NURSE ---
Notified 2nd trop was negative. Updated and pt
--- NOTE | 2022-07-13 23:20 | PC.NURSE ---
Dr. Buitrago at
--- NOTE | 2022-07-13 23:29 | PC.NURSE ---
Naz walking pt around dept. Pt denies any dizziness at this time and advises he feels a little better
== END 2022-07-14 00:03 | disposition home or self-care (01) ==
PROVIDERS: Emergency Medicine; Emergency Provider Emergency Medicine; PCP Family Medicine
DX: H83.09 Labyrinthitis, unspecified ear (principal); W19.XXXA Unspecified fall, initial encounter
CPT/HCPCS: 70450; 70496; 70498; 71045; 80048; 84145; 84484; 85025; 85610; 85651; 86140; 93005; 99284; 99285; Q9967

== ENCOUNTER 2023-09-29 12:40 | Outpatient (CLI) | payer OTHER, SELFPAY ==
--- NOTE | 2023-09-29 12:41 | US_ITS ---
FINAL REPORT CLINICAL HISTORY: Inflamed lymph node FINDINGS: ULTRASOUND SOFT TISSUES OF THE CHEST TECHNIQUE: Limited sonographic imaging of the soft tissues of the chest within the midsternal region were obtained. FINDINGS: Hypoechoic structure within the mid sternal body measuring approximately 2 x 1.5 cm may represent a soft tissue mass. Further assessment is recommended with CT or MRI. If MRI is performed, recommend contrast-enhanced exam. There is no lymphadenopathy. No fluid collection is identified. IMPRESSION: Sternal lesion requiring further assessment with CT or MRI as above. Reviewed, Interpreted and Dictated by Raymon Perez MD Transcribed by Renetta Alva Authenticated and [facility]
== END 2023-09-29 23:59 | disposition home or self-care (01) ==
LOC: RAD 12:41
PROVIDERS: PCP Nurse Practitioner Family; Visit Provider Nurse Practitioner Family
DX: R59.9 Enlarged lymph nodes, unspecified (principal); R22.2 Localized swelling, mass and lump, trunk
CPT/HCPCS: 76604

== ENCOUNTER 2023-10-30 09:33 | Outpatient (CLI) | payer OTHER, SELFPAY ==
--- NOTE | 2023-10-30 09:34 | CT_ITS ---
FINAL REPORT TECHNIQUE: Pre and postcontrast axial imaging of the chest was obtained. This study was performed with techniques to keep radiation doses as low as reasonably achievable (ALARA). Individualized dose reduction techniques using automated exposure control or adjustment of mA and/or kV according to the patient's size were employed. CLINICAL HISTORY: Lump in chest COMPARISON: 09/29/2023 FINDINGS: There are several chronic right posterior rib fractures. Mild spurring is seen at the sternomanubrial joint. No other mass is identified. The lungs are clear. There is no pleural or pericardial effusion. No acute osseous abnormality is seen. There is no abnormal contrast-enhancement. There is no adenopathy. No acute osseous abnormality is seen. IMPRESSION: Mild spurring at the sternomanubrial joint. Reviewed, Interpreted and Dictated by Augustin Lindsay III, MD Transcribed by Tammie Cheatham Authenticated and [facility]
[2023-10-30 10:15] LABS: Blood Urea Nitrogen 23 mg/dl (9-20); Estimated Glomerular Filt Rate 69 ml/min (>60); GFR (African American) 84 ML/MIN (>60)
[2023-10-30] MEDS: SODIUM CHLORIDE 0.9% 10ML SYR (RAD ONLY) 10 ML IV (10:35)
[2023-10-30] MEDS: IOPAMIDOL-370 (76%);100ML BOTTLE 75 ML IV (10:35)
== END 2023-10-30 23:59 | disposition home or self-care (01) ==
PROVIDERS: PCP Nurse Practitioner Family; Visit Provider Nurse Practitioner Family
DX: R22.2 Localized swelling, mass and lump, trunk (principal)
CPT/HCPCS: 71270; 82565; 84520; Q9967

== ENCOUNTER 2023-11-28 07:56 | Outpatient (CLI) | payer OTHER, SELFPAY ==
--- NOTE | 2023-11-28 07:57 | MR_ITS ---
FINAL REPORT CLINICAL HISTORY: palpable sternal mass, marker placed at location of mass mass has been there for 3 months COMPARISON: CT chest 10/30/2023 FINDINGS: Multiplanar imaging was obtained of the thorax. A skin marker was placed over the site of clinical abnormality which corresponds to the sternomanubrial joint. There is minimal anterior spurring at this location. There is no evidence of bone marrow edema. No soft tissue masses seen. IMPRESSION: Clinical abnormality corresponds to the sternomanubrial joint without evidence of bone marrow edema or soft tissue mass. Reviewed, Interpreted and Dictated by Quintin Montiel MD Transcribed by Lis Jackson Authenticated and [facility]
== END 2023-11-28 23:59 | disposition home or self-care (01) ==
LOC: RAD 07:57
PROVIDERS: PCP Nurse Practitioner Family; Visit Provider Nurse Practitioner Family
DX: R22.2 Localized swelling, mass and lump, trunk (principal)
CPT/HCPCS: 71552; A9576

== ENCOUNTER 2024-08-12 15:46 | Emergency (ER) | payer OTHER, SELFPAY ==
[2024-08-12 15:52] VITALS: BP 138/84; PULSE 102; RESP 18; TEMP 37; O2SAT 98; BMI 26.5
--- NOTE | 2024-08-12 15:53 | ED_ITS ---
<Statement entered by Chapincito Callejas MD - 08/12/24 22:52> I was consulted by the ADAM, and we discussed the complexity of the problems being addressed. I approved the treatment and management plan for this patient's care in the emergency department, thus performing a substantive portion of the medical decision making. Chapincito Callejas MD, ENMANUEL, FACEP Discharge Plan Disposition Patient Disposition: Home, Self-Care Condition: Good Prescriptions Prescriptions: New cephalexin 500 mg capsule 500 mg PO BID 7 Days Qty: 14 0RF No Action aspirin [Adult Low Dose Aspirin] 81 mg tablet,delayed release (DR/EC) 81 mg PO DAILY metoprolol tartrate 25 mg tablet 25 mg PO DAILY Referrals Follow up/Referrals: Radha Damon APRN [Primary Care Provider] - See instructions Activity Restrictions/Add. Instructions Additional Instructions/Restrictions: As we discussed please keep your incision clean dry and covered with a nonocclusive dressing when needed. May wash with soap and water pat dry. If you notice any redness drainage swelling pain return to the emergency departm ent. Your stitches need to stay in for approximately 2 weeks. You can return to your PCP [facility] or the ER to have them removed. I have sent a prescription in for Keflex to your pharmacy. Please make sure to take it till it is gone. Clinical Impressions Clinical Impression: Laceration of knee, left Qualifiers: Encounter type: initial encounter Qualified Code(s): S81.012A - Laceration without foreign body, left knee, initial encounter Instructions Patient Instructions: DI for Laceration Repair Print Language Print Language: [place]serrat[place] Discharge ED Provider: Chapincito Callejas General Adult HPI General Chief complaint: Wound/Laceration Stated complaint: AO 08/12/24 1447 laceration left knee Time Seen by Provider: 08/12/24 15:53 History of Present Illness HPI narrative: Patient presents for left knee laceration. Patient was cutting wood with a chainsaw and accidentally bumped the blade with his left knee. He suffered a laceration to his left patella area. He is able to bear weight has full range of motion is neurovascular intact distally. Suffered no other injury. Related Data Home Medications ?Medication ?Instructions ?Recorded ?Confirmed aspirin 81 mg tablet,delayed 81 mg PO DAILY 09/05/23 02/27/24 release (Adult Low Dose Aspirin) metoprolol tartrate 25 mg tablet 25 mg PO DAILY 02/27/24 02/27/24 Previous Rx's ?Medication ?Instructions ?Recorded cephalexin 500 mg capsule 500 mg PO BID 7 days #14 caps 08/12/24 Allergies Allergy/AdvReac Type Severity Reaction Status Date / Time No Known Allergies Allergy Verified 02/27/24 13:54 [facility] Disclaimer: The information contained in this section may have been updated after the patient was seen, as this information can be updated by other users. Surgical History (Updated 02/27/24 @ 13:55 by Cheyenne Hackett CMA) History of colonoscopy H/O lithotripsy Social History Smoking Status: Never smoker alcohol intake: never substance use type: denies use current occupational status: employed Travel in the last 8 weeks: None household members: family housing: house current occupational exposures/hazards: No caffeine: Yes Have you lived/traveled outside [place] in past 30 days?: No Contact w/someone who lives/traveled outside [place] past 30 days?: No Exposure to someone with infectious disease in past 14 days?: No Do you have a fever (greater than 100.4 F or 38 C)?: No Have you tested positive for COVID-19: No Exposed to someone with COVID-19 in past 14 days?: No Do you have a sore throat?: No Do you have a cough?: No Do you have any weakness?: No Do you have any diarrhea?: No Are you experiencing any unusual bleeding?: No Do you have any muscle aches/pain?: No Do you have any abdominal pain?: No Are you experiencing loss of taste or smell?: No Other Medical History Have you received the Flu Vaccine for this season: No Have you received the Pneumonia Vaccine: Yes ROS Obtained: Yes Systems reviewed as appropriate & no additional complaints except as documented Physical Exam General General appearance: alert and in no apparent distress Respiratory Respiratory exam: Present normal lung sounds bilaterally Cardiovascular Cardiovascular exam: Present regular rate and normal rhythm Neurological Exam Neurological exam: Present alert and oriented X3 Skin Skin exam: Present dry Medical Decision Making Medical Records Medical records reviewed: Yes I reviewed the patient's medical records. Screening: Per USPSTF and CDC recommendations, given the prevalence of disease in our region, it is our hospital?s policy to screen for HIV and viral Hepatitis for all patients aged 18 and over and those with ongoing risk factors. Andrew Inquiry Pt receiving controlled substance: No Vital Signs: 08/12/24 15:52 08/12/24 16:56 Temperature 98.6 F 98.1 F Temperature Source Oral Oral Pulse Rate 79 Pulse Rate [Right] 102 H Respiratory Rate 18 18 Blood Pressure 138/79 Blood Pressure [Right Arm] 138/84 Blood Pressure Mean [Right Arm] 102 Blood Pressure Source [Right Arm] Automatic Cuff Blood Pressure Position [Right Arm] Sitting 02 Sat by Pulse Oximetry 98 Oxygen Delivery Method Room Air Room Air Orders (Tests/Meds): ED MEDICATIONS Discontinued Medications Generic Name Dose Route Start Last Admin Trade Name Freq PRN Reason Stop Dose Admin Cephalexin HCl 500 mg 08/12/24 16:00 08/12/24 16:11 Cephalexin 500mg Capsule PO 08/12/24 16:01 500 mg ONCE ONE Administration Lidocaine/Epinephrine 10 ml 08/12/24 16:00 08/12/24 16:10 Lidocaine 1% W/Epi 1:100,000 20ml Vial SQ 08/12/24 16:01 10 ml ONCE ONE Administration Tetanus/Reduced Diphtheria/Acell Pertussis 0.5 ml 08/12/24 16:00 08/12/24 16:11 Tet/Diphth/Pert-Adult 0.5ml Syringe IM 08/12/24 16:01 0.5 ml .ONCE ONE Administration Medical Decision Narrative: In summary patient is a 59-year-old male who presents to the emergency department for evaluation of knee laceration. Patient is hemodynamically upon arrival, afebrile. Exam is remarkable for a very superficial 6 cm laceration across the patella area of his left knee. Patient has full range of motion is neurovascular intact distally.. Differential diagnosis includes simple versus complex laceration. Initial workup will be conducted with exam under local infiltrative anesthesia. Initial interventions include Tdap and Keflex. Initial workup performed by me and after 10 cc of lidocaine with epinephrine was infiltrated around the laceration wound was irrigated and explored. Deep structures are intact does not penetrate to the periosteum of the patella. G iven this wound was repaired primarily with 4.0 nylon stitches and 12 interrupted sutures were placed.. Given this patient is appropriate for discharge with prescription for Keflex with first dose given here and wound care instructions given by myself. Sutures to come out in about 10 to 14 days. Patient given strict return precautions. Procedures Laceration Laceration 1: Site: lower extremity Side (If applicable): left Size (cm): 6 Description: linear Depth: simple, single layer Local Anesthetic: with epi Amount of anesthesia used (mL): 10 Pre-repair: wound explored, irrigated extensively and deep structures intact Skin layer closed with: nylon Size (cm): 4-0 Number of sutures: 12 Technique: simple, interrupted Critical Care Critical Care Time Critical Care Time: No
[2024-08-12] MEDS: LIDOCAINE 1% W/EPI 1:100,000 20ML VIAL 10 ML SQ (16:10)
[2024-08-12] MEDS: cephALEXin 500MG CAPSULE 500 MG PO (16:11)
[2024-08-12] MEDS: TET/DIPHTH/PERT-ADULT 0.5ML SYRINGE 0.5 ML IM (16:11)
[2024-08-12 16:56] VITALS: BP 138/79; PULSE 79; RESP 18; TEMP 36.7; O2SAT 97
== END 2024-08-12 16:57 | disposition home or self-care (01) ==
PROVIDERS: Emergency Provider Student in an Organized Health Care Education/Training Program; PCP Nurse Practitioner Family
DX: S81.012A Laceration without foreign body, left knee, initial encounter (principal); W29.3XXA Contact with powered garden and outdoor hand tools and machinery, initial encounter; Z23 Encounter for immunization
CPT/HCPCS: 12002; 90471; 99283; 90715